=== PATIENT | female | born 2000 | race African-American/Black ===

== ENCOUNTER 2020-06-18 04:48 | Emergency (ER) | payer MEDICAID, SELFPAY ==
[2020-06-18 05:01] VITALS: BP 162/98; PULSE 76; RESP 16; TEMP 36.8; O2SAT 98; BMI 31.3
--- NOTE | 2020-06-18 05:18 | HMH.EDDENT ---
ED Disposition Clinical Impression: Pain, dental, Gingivitis Disposition: Home, Self-Care Condition on Discharge: Good Instructions: DI for Dental Pain Additional Instructions: use meds and see dentist Prescriptions: cephALEXin [Keflex 500mg Cap] 500 mg PO TID #30 cap Transmission Status: Pending to [facility] #[id number] Referrals: PCP,No [Primary Care Provider] - - Critical Care Critical Care Time: No Attestation: On 06/18/20, the high probability of a clinically significant, sudden or life threatening deterioration of the following system(s) required my full and direct attention, intervention and personal management. The time I documented below is in addition to time spent performing reported procedures but includes the following listed in this critical care notation. Medical Decision Making - Medical Records Medical records reviewed: Yes: I reviewed the patient's medical records. - Serge Inquiry Pt receiving controlled substance: No Vital Signs: 06/18/20 05:01 Temperature 98.2 F Temperature Source Oral Pulse Rate [Right Brachial] 76 Respiratory Rate 16 Blood Pressure [Right Arm] 162/98 H Blood Pressure Mean [Right Arm] 119 Blood Pressure Source [Right Arm] Automatic Cuff Blood Pressure Position [Right Arm] Sitting 02 Sat by Pulse Oximetry 98 Oxygen Delivery Method Room Air Orders (Tests/Meds): ED MEDICATIONS Generic Name Dose Route Start Last Admin Trade Name Freq PRN Reason Stop Dose Admin Benzocaine/Butamben/Tetracaine HCl 1 gm 06/18/20 05:16 06/18/20 05:18 Tetracaine/Benzocaine/Butamben 56 Gm [place] TP 07/18/20 05:15 1 gm NEEDED PRN Administration Mild Pain Discontinued Medications Generic Name Dose Route Start Last Admin Trade Name Freq PRN Reason Stop Dose Admin Lidocaine HCl 15 ml 06/18/20 05:08 06/18/20 05:18 Lidocaine 2% Viscous Angie 15ml Udc PO 06/18/20 05:09 15 ml ONCE ONE Administration Dental HPI - General Chief complaint: Dental/Oral Stated complaint: Pain in lft jaw;tooth Time Seen by Provider: 06/18/20 05:19 Mode of Arrival: Family Vehicle Source of Information: Patient, Medical Record Limitations: No Limitations Description of Symptoms (Recalled from ER Triage Doc. by RN): right side jaw pain, began 4 days ago; states she broke a tooth on her lower jaw and noted it started having swelling and pain. presents because she can't get good sleep > - History of Present Illness HPI Narrative: rt lower jaw pain - hx of dental issues MD Complaint: tooth pain Onset (ago): day(s) Duration: constant Severity: moderate Context: history of dental caries Treatment prior to arrival: none - Related Data Previous Rx's Medication Instructions Recorded cephALEXin [Keflex 500mg Cap] 500 mg PO TID #30 cap 06/18/20 Allergies Allergy/AdvReac Type Severity Reaction Status Date / Time acetaminophen [From Tylenol] Allergy Verified 06/18/20 05:17 latex Allergy Verified 06/18/20 05:07 [facility] History - Hepatitis A Screen Drug use history?: No High risk sexual behaviors?: No History of sexually transmitted infection?: No Currently employed?: No Childcare worker?: No Do you have indoor plumbing?: Yes Do you have electricity?: Yes Attestation statement:: This patient has been screened for Hepatitis A risk factors. I have reviewed the patient's past medical history: Yes ROS Obtained: Yes All systems reviewed & no additional complaints - Constitutional Constitutional: Denies fever(s) - Eyes Eyes: Denies change in vision - ENT Ears, Nose, Mouth, and Throat: Reports as per HPI, Reports dental pain Physical Exam - General General appearance: alert - Head Head exam: normocephalic - Eye Eye exam: Present: PERRL, EOMI - ENT ENT exam: Present: mucous membranes moist - Expanded ENT Exam Teeth exam: Present: dental caries, gingival swelling - Neck Neck exam: Present: trachea midline - Respi
[2020-06-18 05:26] VITALS: BP 147/86; PULSE 72; RESP 16; TEMP 36.7; O2SAT 98
== END 2020-06-18 05:28 | disposition home or self-care (01) ==
PROVIDERS: Emergency Provider Emergency Medicine
DX: K05.01 Acute gingivitis, non-plaque induced (principal); K02.9 Dental caries, unspecified; R03.0 Elevated blood-pressure reading, without diagnosis of hypertension; Z91.040 Latex allergy status
CPT/HCPCS: 99281

== ENCOUNTER 2020-06-23 19:37 | Emergency (ER) | payer MEDICAID, SELFPAY ==
[2020-06-23 19:31] VITALS: BP 152/83; PULSE 98; RESP 14; TEMP 37.1; O2SAT 99; BMI 31.3
--- NOTE | 2020-06-23 19:46 | CT_ITS ---
PROCEDURE: CT HEAD/BRAIN WO CON CLINICAL INDICATION: seizure 4 seizures today COMPARISON: No exams were available for comparison TECHNIQUE: Axial images obtained. All CT scans at the facility use one or more dose reduction, viz: automated exposure control, ma/kV adjustment per patient size (including targeted exams where dose is matched to indication, i.e. head), or iterative reconstruction technique. FINDINGS: No midline shift, mass effect, intracranial hemorrhage, hydrocephalus, or extra-axial fluid collection is evident. The calvarium has an unremarkable appearance. No mastoid effusion. Mild mucosal thickening present in the ethmoid sinuses. IMPRESSION: No acute intracranial finding Dictated by: Adonay Stinson MD 06/24/2020 05:31 Adonay Stinson MD in [facility] 06/24/2020 05:31
[2020-06-23 20:00] LABS: Microscopic, Urine URINE MICROSCOPIC (MICROSCOPIC)
[2020-06-23 20:05] LABS: Appearance,Urine CLEAR (Clear); Bilirubin,Urine Negative (Negative); Blood, Urine Negative (Negative); Color,Urine YELLOW (Yellow); Glucose,Urine (UA) Negative (Negative); Ketones,Urine Negative (Negative); Leukocyte Esterase,Urine Negative (Negative); Nitrate,Urine Negative (Negative); PH,Urine 7.5 (5.0-8.5); Protein,Urine Negative (Negative)
[2020-06-23 20:06] LABS: Urine Pregnancy, HCG Qual. Negative (Negative)
[2020-06-23 20:10] LABS: Bacteria,Urine 1+ /lpf; Mucus,Urine 1+ /lpf
[2020-06-23 20:20] LABS: Barbiturates Screen,Urine Negative ng/ml (<200)
[2020-06-23 20:22] LABS: Cannabinoid Screen,Urine Negative ng/ml (<50); Cocaine Screen,Urine Negative ng/ml (<300)
[2020-06-23 20:24] LABS: Opiate Screen,Urine Negative ng/ml (<300); Phencyclidine Screen,Urine Negative ng/ml (<25)
[2020-06-23 20:27] LABS: Benzodiazepines Screen,Urine Negative ng/ml (<200); Methadone Screen,Urine Negative ng/ml (<300)
[2020-06-23 20:28] LABS: Amphetamine/Metha Screen,Urine Negative ng/ml (<1000)
[2020-06-23 21:00] LABS: Basophils # 0.1 K/mm3 (0-0.2); Basophils % 0.8 % (0.1-2.0); Eosinophils # 0.2 K/mm3 (0.0-0.4); Eosinophils % 1.6 % (0.1-12.0); Hematocrit 41.7 % (37.0-47.0); Hemoglobin 14.1 g/dL (12.2-16.2); Lymphocytes # 2.3 K/mm3 (0.7-4.5); Lymphocytes % 24.7 % (10-50); Mean Corpuscular HGB Conc 33.8 g/dL (31.8-35.4); Mean Corpuscular Hemoglobin 29.1 pg (27.0-31.2); Mean Platelet Volume 7.6 fl (7.4-10.4); Monocytes # 0.4 K/mm3 (0.1-1.0); Monocytes % 4.2 % (1.7-9.3); Neutrophils # 6.4 K/mm3 (1.8-7.8); Neutrophils % 68.7 % (37.0-80.0); Platelet Count 291 K/mm3 (142-424); Red Blood Count 4.85 M/mm3 (4.20-5.40); Red Cell Distribution Width 13.9 % (11.5-17.5); White Blood Count 9.4 K/mm3 (4.8-10.8)
--- NOTE | 2020-06-23 21:02 | HMH.EDSEIZ ---
ED Disposition Clinical Impression: Epileptic seizure Qualifiers: Epilepsy type: unspecified Intractability: not intractable Status epilepticus: without status epilepticus Qualified Code(s): G40.909 - Epilepsy, unspecified, not intractable, without status epilepticus Disposition: Home, Self-Care Condition on Discharge: Good Instructions: DI for Seizure Disorder -- Adult Additional Instructions: see pcp for follow up Prescriptions: levETIRAcetam [Keppra 500mg tablet] 500 mg PO BID #30 tab Transmission Status: Received by [facility] #[id number] Referrals: PCP,No [Primary Care Provider] - - Critical Care Critical Care Time: No Attestation: On 06/23/20, the high probability of a clinically significant, sudden or life threatening deterioration of the following system(s) required my full and direct attention, intervention and personal management. The time I documented below is in addition to time spent performing reported procedures but includes the following listed in this critical care notation. Medical Decision Making - Medical Records Medical records reviewed: Yes: I reviewed the patient's medical records. - Serge Inquiry Pt receiving controlled substance: No Vital Signs: 06/23/20 19:31 Temperature 98.7 F Temperature Source Oral Pulse Rate [Right] 98 H Respiratory Rate 14 Blood Pressure [Right Arm] 152/83 H Blood Pressure Mean [Right Arm] 106 Blood Pressure Source [Right Arm] Automatic Cuff Blood Pressure Position [Right Arm] Sitting 02 Sat by Pulse Oximetry 99 Oxygen Delivery Method Room Air - Lab Data Lab results reviewed: Yes: I reviewed the patient's lab results. Lab Results 06/23/20 19:50: Urine Color Yellow, Urine Appearance Clear, Urine pH 7.5, Ur Specific [place] 1.020, Urine Protein Negative, Urine Glucose (UA) Negative, Urine Ketones Negative, Urine Blood Negative, Urine Nitrate Negative, Urine Bilirubin Negative, Urine Urobilinogen 1.0, Ur Leukocyte Esterase Negative, Urine WBC 3-5, Ur Squamous Epith Cells 5-10, Urine Bacteria 1+, Urine Mucus 1+ 06/23/20 19:50: Urine HCG, Qual Negative 06/23/20 19:50: Urine Opiates Screen Negative, Urine Methadone Screen Negative, Ur Barbituates Screen Negative, Ur Phencyclidine Scrn Negative, Ur Amphetamines Screen Negative, U Benzodiazepines Scrn Negative, Urine Cocaine Screen Negative, U Marijuana (THC) Screen Negative 06/23/20 20:49: WBC 9.4, RBC 4.85, Hgb 14.1, Hct 41.7, MCV 86.0, MCH 29.1, MCHC 33.8, RDW 13.9, Plt Count 291, MPV 7.6, Neut % (Auto) 68.7, Lymph % (Auto) 24.7, [place] % (Auto) 4.2, Eos % (Auto) 1.6, Baso % (Auto) 0.8, Neut # (Auto) 6.4, Lymph # (Auto) 2.3, [place] # (Auto) 0.4, Eos # (Auto) 0.2, Baso # (Auto) 0.1 06/23/20 20:49: Sodium 139, Potassium 3.3 L, Chloride 104, Carbon Dioxide 26, Anion Gap 12.3, BUN 5 L, Creatinine 0.50 L, Estimated Creat Clear 198, Estimated GFR 156, Est GFR ( Amer) 188, Glucose 114 H, Calcium 9.3, Total Bilirubin 0.5, AST 27, ALT 17, Alkaline Phosphatase 97, C-Reactive Protein 2.5, Total Protein 9.7 H, Albumin 4.5, Globulin 5.2 H, Albumin/Globulin Ratio 0.9 L Result diagrams: 06/23/20 20:49 06/23/20 20:49 Orders (Tests/Meds): ED MEDICATIONS Generic Name Dose Route Start Last Admin Trade Name Freq PRN Reason Stop Dose Admin Sodium Chloride 1,000 mls @ 999 mls/hr 06/23/20 20:00 Sod Chlor 0.9% 1000ml Bag IV 06/23/20 21:00 .[id number] JEWELL Levetiracetam 1,000 mg 06/24/20 09:00 Levetiracetam 500 Mg Tablet PO 07/24/20 08:59 TID JEWELL ORDERS Category Date Time Status CT head/brain wo con Stat Cat Scan 06/23/20 19:46 Taken Complete Blood Count Auto Diff Stat Lab 06/23/20 20:49 Results Erythrocyte Sedimentation Rate Stat Lab 06/23/20 20:49 Results Levetiracetam (Keppra) Stat Lab 06/23/20 20:49 Received - CT Data CT Scan: Head Time Received: 21:[address] Reviewed: Yes: I have viewed the radiologist's interpretation Preliminary Findings: Normal/NAD Seizures HPI - Gen
[2020-06-23 21:03] LABS: Chloride 104 mmol/L (98-107); Potassium 3.3 mmoL/L (3.5-5.1); Sodium 139 mmol/L (136-145)
[2020-06-23 21:06] LABS: Alanine Aminotransferase 17 U/L (12-78); Albumin Level 4.5 g/dl (3.5-5.0); Albumin/Globulin Ratio 0.9 (1.1-1.8); Alkaline Phosphatase 97 U/L (38-126); Anion Gap 12.3 mEq/L (5-15); Aspartate Amino Transferase 27 U/L (14-36); Bilirubin,Total 0.5 mg/dl (0.2-1.3); Blood Urea Nitrogen 5 mg/dl (7-17); Carbon Dioxide 26 mmol/L (22.0-30.0); Creatinine Clearance Estimated 198 mL/min (50-200); Estimated Glomerular Filt Rate 156 ml/min (>60); GFR (African American) 188 ML/MIN (>60); Globulin 5.2 g/dL (1.3-3.2); Total Protein,Serum 9.7 g/dl (6.3-8.2)
[2020-06-23 21:07] LABS: Calcium 9.3 mg/dl (8.4-10.2); Glucose 114 mg/dl (74-100)
--- NOTE | 2020-06-23 21:10 | PC.NURSE ---
Kepra dose per Sabrina in Pharmacy
[2020-06-23 21:12] LABS: C-Reactive Protein 2.5 mg/L (0-4)
[2020-06-23 21:36] LABS: Erythrocyte Sedimentation Rate 36 mm/hr (0-20)
[2020-06-23 21:47] VITALS: BP 124/85; PULSE 83; RESP 16; TEMP 36.6; O2SAT 100
[2020-06-28 11:17] LABS: Levetiracetam (Keppra) <1.0 ug/mL (10.0-40.0)
== END 2020-06-23 21:48 | disposition home or self-care (01) ==
PROVIDERS: Emergency Provider Emergency Medicine
DX: G40.909 Epilepsy, unspecified, not intractable, without status epilepticus (principal); Z91.040 Latex allergy status
CPT/HCPCS: 36415; 70450; 80053; 80177; 80305; 81001; 81025; 85025; 85651; 86140; 99283

== ENCOUNTER 2020-07-21 03:30 | Emergency (ER) | payer MEDICAID, SELFPAY ==
[2020-07-21 03:31] VITALS: BP 111/67; PULSE 94; RESP 15; TEMP 36.9; O2SAT 100; BMI 32.3
--- NOTE | 2020-07-21 05:08 | HMH.EDDENT ---
ED Disposition Clinical Impression: Pain, dental, Dental caries Disposition: Home, Self-Care Condition on Discharge: Good Instructions: DI for Dental Pain Additional Instructions: see pcp for follow up and also dentist Prescriptions: clindamycin HCL [Clindamycin HCl] 300 mg PO TID #21 cap Transmission Status: Pending to [facility] # Meloxicam [Mobic 15 mg tab] 15 mg PO DAILY #10 tab Transmission Status: Pending to [facility] #[id number] Referrals: PCP,No [Primary Care Provider] - - Critical Care Critical Care Time: No Attestation: On 07/21/20, the high probability of a clinically significant, sudden or life threatening deterioration of the following system(s) required my full and direct attention, intervention and personal management. The time I documented below is in addition to time spent performing reported procedures but includes the following listed in this critical care notation. Medical Decision Making - Medical Records Medical records reviewed: Yes: I reviewed the patient's medical records. - Serge Inquiry Pt receiving controlled substance: No Vital Signs: 07/21/20 03:31 Temperature 98.5 F Temperature Source Oral Pulse Rate [Right Radial] 94 H Respiratory Rate 15 Blood Pressure [Right Arm] 111/67 Blood Pressure Mean [Right Arm] 81 Blood Pressure Source [Right Arm] Automatic Cuff Blood Pressure Position [Right Arm] Sitting 02 Sat by Pulse Oximetry 100 Oxygen Delivery Method Room Air - Lab Data Lab results reviewed: Yes: I reviewed the patient's lab results. Orders (Tests/Meds): ED MEDICATIONS Generic Name Dose Route Start Last Admin Trade Name Freq PRN Reason Stop Dose Admin Benzocaine/Butamben/Tetracaine HCl 1 gm 07/21/20 04:14 07/21/20 04:21 Tetracaine/Benzocaine/Butamben 56 Gm [place] TP 08/20/20 04:13 1 gm NEEDED PRN Administration Dental pain Discontinued Medications Generic Name Dose Route Start Last Admin Trade Name Freq PRN Reason Stop Dose Admin Indomethacin 25 mg 07/21/20 04:55 07/21/20 04:59 Indomethacin 25 Mg Capsule PO 07/21/20 04:56 25 mg ONCE ONE Administration Lidocaine HCl 15 ml 07/21/20 04:14 07/21/20 04:20 Lidocaine 2% Viscous Angie 15ml Udc PO 07/21/20 04:15 15 ml ONCE ONE Administration Dental HPI - General Chief complaint: Dental/Oral Stated complaint: Toothache,mouth pain Time Seen by Provider: 07/21/20 04:35 Mode of Arrival: Ambulatory Source of Information: Patient, Medical Record Limitations: No Limitations Description of Symptoms (Recalled from ER Triage Doc. by RN): Pt c/o right side jaw pain and swelling starting 2 days ago. She states pain is similar to last time she was seen here in this ED 06/18. Pt has not followed up with dentist. - History of Present Illness HPI Narrative: pt with ongoing dental pain - pt has not seen dentist MD Complaint: tooth pain Onset (ago): day(s) Severity: mild Context: history of dental caries - Related Data Home Medications Medication Instructions Recorded Confirmed Tramadol HCl [Tramadol 50mg 50 mg PO Q6 PRN 06/23/20 06/23/20 Tab] cephALEXin [Keflex 500mg Cap] 500 mg PO TID 06/23/20 06/23/20 levETIRAcetam [Levetiracetam] 500 mg PO BID 06/23/20 06/23/20 Previous Rx's Medication Instructions Recorded levETIRAcetam [Keppra 500mg tablet] 500 mg PO BID #30 tab 06/23/20 Meloxicam [Mobic 15 mg tab] 15 mg PO DAILY #10 tab 07/21/20 clindamycin HCL [Clindamycin HCl] 300 mg PO TID #21 cap 07/21/20 Allergies Allergy/AdvReac Type Severity Reaction Status Date / Time acetaminophen [From Tylenol] Allergy Verified 06/18/20 05:17 latex Allergy Verified 06/18/20 05:07 [facility] History - Hepatitis A Screen Drug use history?: No High risk sexual behaviors?: No History of sexually transmitted infection?: No Currently employed?: No Childcare worker?: No Do you have indoor plumbing?: Yes Do you have electricity
[2020-07-21 05:23] VITALS: BP 126/68; PULSE 72; RESP 15; TEMP 36.7; O2SAT 100
== END 2020-07-21 05:25 | disposition home or self-care (01) ==
PROVIDERS: Emergency Provider Emergency Medicine
DX: K02.9 Dental caries, unspecified (principal); G40.909 Epilepsy, unspecified, not intractable, without status epilepticus; Z79.899 Other long term (current) drug therapy
CPT/HCPCS: 99281

== ENCOUNTER 2020-10-05 00:11 | Emergency (ER) | payer MEDICAID, SELFPAY ==
[2020-10-05 00:13] VITALS: BP 122/84; PULSE 96; RESP 14; TEMP 36.5; O2SAT 98; BMI 31.3
[2020-10-05 00:34] LABS: Appearance,Urine CLEAR (Clear); Bilirubin,Urine Negative (Negative); Blood, Urine TRACE-I (Negative); Color,Urine YELLOW (Yellow); Glucose,Urine (UA) Negative (Negative); Ketones,Urine Negative (Negative); Leukocyte Esterase,Urine Negative (Negative); Microscopic, Urine URINE MICROSCOPIC (MICROSCOPIC); Nitrate,Urine Negative (Negative); Protein,Urine Negative (Negative); Specific Gravity, Urine 1.025 (1.005-1.030); Urobilinogen,Urine 0.2 EU/dl (0.2)
[2020-10-05 00:37] LABS: Urine Pregnancy, HCG Qual. Negative (Negative)
[2020-10-05 00:41] LABS: Basophils # 0.1 K/mm3 (0-0.2); Basophils % 0.8 % (0.1-2.0); Eosinophils # 0.2 K/mm3 (0.0-0.4); Eosinophils % 2.1 % (0.1-12.0); Hematocrit 38.7 % (37.0-47.0); Hemoglobin 12.5 g/dL (12.2-16.2); Lymphocytes # 2.6 K/mm3 (0.7-4.5); Lymphocytes % 27.4 % (10-50); Mean Corpuscular HGB Conc 32.3 g/dL (31.8-35.4); Mean Corpuscular Hemoglobin 28.9 pg (27.0-31.2); Mean Corpuscular Volume 89.3 fl (81-99); Mean Platelet Volume 10.7 fl (7.4-10.4); Monocytes # 0.8 K/mm3 (0.1-1.0); Monocytes % 8.4 % (1.7-9.3); Neutrophils # 5.9 K/mm3 (1.8-7.8); Neutrophils % 61.3 % (37.0-80.0); Platelet Count 177 K/mm3 (142-424); Red Blood Count 4.34 M/mm3 (4.20-5.40); Red Cell Distribution Width 12.7 % (11.5-17.5); White Blood Count 9.6 K/mm3 (4.8-10.8)
[2020-10-05 00:45] LABS: Chloride 106 mmol/L (98-107)
[2020-10-05 00:46] LABS: Potassium 3.7 mmoL/L (3.5-5.1); Sodium 137 mmol/L (136-145)
[2020-10-05 00:48] LABS: Alanine Aminotransferase 15 U/L (12-78); Aspartate Amino Transferase 25 U/L (14-36); Blood Urea Nitrogen 3 mg/dl (7-17); Creatinine Clearance Estimated 196 mL/min (50-200); Estimated Glomerular Filt Rate 154 ml/min (>60); GFR (African American) 187 ML/MIN (>60)
[2020-10-05 00:49] LABS: Albumin Level 4.1 g/dl (3.5-5.0); Albumin/Globulin Ratio 0.9 (1.1-1.8); Alkaline Phosphatase 88 U/L (38-126); Anion Gap 11.7 mEq/L (5-15); Bilirubin,Total 0.4 mg/dl (0.2-1.3); Calcium 9.1 mg/dl (8.4-10.2); Carbon Dioxide 23 mmol/L (22.0-30.0); Globulin 4.5 g/dL (1.3-3.2); Glucose 114 mg/dl (74-100); Total Protein,Serum 8.6 g/dl (6.3-8.2)
[2020-10-05 00:49] LABS: Amphetamine/Metha Screen,Urine Negative ng/ml (<1000)
[2020-10-05 00:50] LABS: Barbiturates Screen,Urine Negative ng/ml (<200)
[2020-10-05 00:51] LABS: Benzodiazepines Screen,Urine Negative ng/ml (<200); Cannabinoid Screen,Urine Negative ng/ml (<50)
[2020-10-05 00:52] LABS: Cocaine Screen,Urine Negative ng/ml (<300)
[2020-10-05 00:53] LABS: Methadone Screen,Urine Negative ng/ml (<300)
[2020-10-05 00:54] LABS: Opiate Screen,Urine Negative ng/ml (<300)
[2020-10-05 00:55] LABS: Phencyclidine Screen,Urine Negative ng/ml (<25)
[2020-10-05 00:56] LABS: C-Reactive Protein 2.9 mg/L (0-4)
[2020-10-05 01:14] LABS: Amorphous Sediment,Urine 1+ /lpf; Bacteria,Urine 1+ /lpf; Mucus,Urine 1+ /lpf
--- NOTE | 2020-10-05 01:30 | PC.NURSE ---
multiple attempts made to get iv access. was unable to obtain access
[2020-10-05 01:39] LABS: Erythrocyte Sedimentation Rate 22 mm/hr (0-20)
[2020-10-05 01:50] LABS: Procalcitonin 0.041 ng/mL (0.0-2.0)
--- NOTE | 2020-10-05 01:57 | HMH.EDHA ---
ED Disposition Clinical Impression: DUB (dysfunctional uterine bleeding) Migraine Qualifiers: Migraine type: unspecified Status migrainosus presence: without status migrainosus Intractability: not intractable Qualified Code(s): G43.909 - Migraine, unspecified, not intractable, without status migrainosus Disposition: Home, Self-Care Condition on Discharge: Good Instructions: DI for Migraine Additional Instructions: call pcp for follow up Referrals: Shaka Lowry APRN [Primary Care Provider] - - Critical Care Critical Care Time: No Attestation: On 10/05/20, the high probability of a clinically significant, sudden or life threatening deterioration of the following system(s) required my full and direct attention, intervention and personal management. The time I documented below is in addition to time spent performing reported procedures but includes the following listed in this critical care notation. Medical Decision Making - Medical Records Medical records reviewed: Yes: I reviewed the patient's medical records. - Serge Inquiry Pt receiving controlled substance: No Vital Signs: 10/05/20 00:13 Temperature 97.7 F Temperature Source Oral Pulse Rate [Right] 96 H Respiratory Rate 14 Blood Pressure [Right Arm] 122/84 Blood Pressure Mean [Right Arm] 96 02 Sat by Pulse Oximetry 98 - Lab Data Lab results reviewed: Yes: I reviewed the patient's lab results. Lab Results 10/05/20 00:15: Urine Color Yellow, Urine Appearance Clear, Urine pH 6.0, Ur Specific [place] 1.025, Urine Protein Negative, Urine Glucose (UA) Negative, Urine Ketones Negative, Urine Blood Trace-i, Urine Nitrate Negative, Urine Bilirubin Negative, Urine Urobilinogen 0.2, Ur Leukocyte Esterase Negative, Urine WBC 3-5, Ur Squamous Epith Cells 10-20, Amorphous Sediment 1+, Urine Bacteria 1+, Urine Mucus 1+ 10/05/20 00:15: Urine HCG, Qual Negative 10/05/20 00:15: Urine Opiates Screen Negative, Urine Methadone Screen Negative, Ur Barbituates Screen Negative, Ur Phencyclidine Scrn Negative, Ur Amphetamines Screen Negative, U Benzodiazepines Scrn Negative, Urine Cocaine Screen Negative, U Marijuana (THC) Screen Negative 10/05/20 00:34: WBC 9.6, RBC 4.34, Hgb 12.5, Hct 38.7, MCV 89.3, MCH 28.9, MCHC 32.3, RDW 12.7, Plt Count 177, MPV 10.7 H, Neut % (Auto) 61.3, Lymph % (Auto) 27.4, [place] % (Auto) 8.4, Eos % (Auto) 2.1, Baso % (Auto) 0.8, Neut # (Auto) 5.9, Lymph # (Auto) 2.6, [place] # (Auto) 0.8, Eos # (Auto) 0.2, Baso # (Auto) 0.1, ESR 22 H 10/05/20 00:34: Sodium 137, Potassium 3.7, Chloride 106, Carbon Dioxide 23, Anion Gap 11.7, BUN 3 L, Creatinine 0.50 L, Estimated Creat Clear 196, Estimated GFR 154, Est GFR ( Amer) 187, Glucose 114 H, Calcium 9.1, Total Bilirubin 0.4, AST 25, ALT 15, Alkaline Phosphatase 88, C-Reactive Protein 2.9, Total Protein 8.6 H, Albumin 4.1, Globulin 4.5 H, Albumin/Globulin Ratio 0.9 L, Procalcitonin 0.041 Result diagrams: 10/05/20 00:34 10/05/20 00:34 Orders (Tests/Meds): ED MEDICATIONS Discontinued Medications Generic Name Dose Route Start Last Admin Trade Name Freq PRN Reason Stop Dose Admin Dexamethasone Sodium Phosphate 8 mg 10/05/20 01:18 10/05/20 01:23 Dexamethasone 4mg/Ml 1ml Vial IM 10/05/20 01:19 8 mg ONCE ONE Administration Diphenhydramine HCl 50 mg 10/05/20 00:33 10/05/20 01:35 Diphenhydramine 50mg/Ml Vial IV 10/05/20 00:34 Not Given ONCE ONE Sodium Chloride 1,000 mls @ 999 mls/hr 10/05/20 00:30 10/05/20 01:34 Sod Chlor 0.9% 1000ml Bag IV 10/05/20 01:30 Not Given .Q1H1M JEWELL Ketorolac Tromethamine 30 mg 10/05/20 00:30 10/05/20 01:34 Ketorolac 30mg/Ml Vial IM 10/05/20 00:31 Not Given ONCE ONE Ketorolac Tromethamine 60 mg 10/05/20 01:18 10/05/20 01:23 Ketorolac 60mg/2ml Vial IM 10/05/20 01:19 60 mg ONCE ONE Administration Methylprednisolone Sodium Succinate 125 mg 10/05/20 00:33 10/05/20 01:35 Methylprednisolone Sod Succ 125mg Vial IV 03
[2020-10-05 02:14] VITALS: BP 127/82; PULSE 79; RESP 14; TEMP 36.5; O2SAT 97
== END 2020-10-05 02:16 | disposition home or self-care (01) ==
PROVIDERS: Emergency Provider Emergency Medicine; PCP Nurse Practitioner Family
DX: N93.8 Other specified abnormal uterine and vaginal bleeding (principal); G43.909 Migraine, unspecified, not intractable, without status migrainosus
CPT/HCPCS: 80053; 80305; 81001; 81025; 84145; 85025; 85651; 86140; 96372; 99282

== ENCOUNTER → 2020-10-31 11:18 | Outpatient (CLI) | payer MEDICAID, SELFPAY ==
[2020-11-08 04:21] LABS: Levetiracetam (Keppra) <1.0 ug/mL (10.0-40.0)
== END ==
PROVIDERS: Visit Provider Specialist
DX: G40.909 Epilepsy, unspecified, not intractable, without status epilepticus (principal)
CPT/HCPCS: 36415; 80177

== ENCOUNTER → 2020-11-03 15:01 | Outpatient (CLI) | payer MEDICAID, SELFPAY | PROVIDERS: PCP Nurse Practitioner Family; Visit Provider Specialist | DX: G40.909 Epilepsy, unspecified, not intractable, without status epilepticus (principal); R51.9 Headache, unspecified; Z68.39 Body mass index [BMI] 39.0-39.9, adult | CPT/HCPCS: 94762 ==

== ENCOUNTER → 2020-11-21 12:32 | Outpatient (CLI) | payer MEDICAID, SELFPAY ==
[2020-11-28 12:34] LABS: Levetiracetam (Keppra) <1.0 ug/mL (10.0-40.0)
== END ==
PROVIDERS: Visit Provider Specialist
DX: R56.9 Unspecified convulsions (principal)
CPT/HCPCS: 36415; 80177

== ENCOUNTER → 2020-11-22 14:39 | Outpatient (CLI) | payer MEDICAID, SELFPAY ==
[2020-11-22 15:07] LABS: Basophils % 0.5 % (0.1-2.0); Eosinophils # 0.1 K/mm3 (0.0-0.4); Eosinophils % 1.8 % (0.1-12.0); Hematocrit 38.8 % (37.0-47.0); Hemoglobin 12.8 g/dL (12.2-16.2); Lymphocytes # 1.8 K/mm3 (0.7-4.5); Lymphocytes % 25.4 % (10-50); Mean Corpuscular HGB Conc 32.9 g/dL (31.8-35.4); Mean Corpuscular Hemoglobin 28.4 pg (27.0-31.2); Mean Corpuscular Volume 86.3 fl (81-99); Mean Platelet Volume 7.7 fl (7.4-10.4); Monocytes # 0.3 K/mm3 (0.1-1.0); Monocytes % 4.9 % (1.7-9.3); Neutrophils # 4.7 K/mm3 (1.8-7.8); Neutrophils % 67.4 % (37.0-80.0); Platelet Count 253 K/mm3 (142-424); Red Blood Count 4.49 M/mm3 (4.20-5.40); Red Cell Distribution Width 12.4 % (11.5-17.5)
[2020-11-23 10:39] LABS: Blood Urea Nitrogen 2 mg/dl (7-17); Estimated Glomerular Filt Rate 154 ml/min (>60); GFR (African American) 187 ML/MIN (>60)
== END ==
PROVIDERS: Specialist; Visit Provider Nurse Practitioner Obstetrics & Gynecology
DX: N93.9 Abnormal uterine and vaginal bleeding, unspecified (principal); N93.8 Other specified abnormal uterine and vaginal bleeding; R56.9 Unspecified convulsions
CPT/HCPCS: 36415; 82565; 84520; 85025

== ENCOUNTER → 2020-11-23 10:08 | Outpatient (CLI) | payer MEDICAID, SELFPAY ==
--- NOTE | 2020-11-23 10:08 | MR_ITS ---
PROCEDURE: MR HEAD/BRAIN WO/W CON CLINICAL INDICATION: seizures COMPARISON: CT CT HEAD/BRAIN WO CON from 06/23/2020 TECHNIQUE: Routine multiplanar multi echo sequences are performed without gadolinium enhancement. FINDINGS: No evidence of restricted diffusion is noted. The flow voids in the major intracranial vessels are preserved. The frank-white matter differentiation is within normal limits without evidence of infarcts. No midline shift or mass effect. No intra or extra-axial hemorrhage, space or space occupying lesion. No focal fluid collections. The sella and the suprasellar region are unremarkable. The visualized medial temporal lobes are unremarkable although the study is not tailored to evaluate for subtle changes. No abnormal enhancement is noted. Small mucous retention cyst in the left maxillary sinus. Otherwise the visualized paranasal sinuses and the mastoid air cells are clear. IMPRESSION: No acute intracranial abnormality. Dictated by: Sydnee Mcclendon 11/23/2020 13:14 Sydnee Mcclendon in [facility] 11/23/2020 13:14
== END ==
PROVIDERS: PCP Nurse Practitioner Family; Visit Provider Specialist
DX: G40.009 Localization-related (focal) (partial) idiopathic epilepsy and epileptic syndromes with seizures of localized onset, not intractable, without status epilepticus (principal)
CPT/HCPCS: 70553; A9576

== ENCOUNTER → 2020-11-29 14:53 | Outpatient (CLI) | payer MEDICAID, SELFPAY ==
--- NOTE | 2020-11-29 14:53 | US_ITS ---
PROCEDURE: US TRANSVAGINAL CLINICAL INDICATION: abnormal vaginal bleeding COMPARISON: No exams were available for comparison FINDINGS: UTERUS: 6cm x 4cmx 4cm with a combined endometrial thickness of 11.3mm LEFT OVARY: [id number] with a volume of 9ml. RIGHT OVARY: [id number] with a volume of 11.2ml. Endometrium is mildly thickened at 12 mm. No obvious uterine mass. Small bilateral ovarian follicles are noted. No cul-de-sac fluid. IMPRESSION: Mild thickening of the endometrium Dictated by: Adonay Stinson MD 11/29/2020 17:36 Adonay Stinson MD in [facility] 11/29/2020 17:36
== END ==
PROVIDERS: PCP Nurse Practitioner Family; Visit Provider Nurse Practitioner Obstetrics & Gynecology
DX: N93.9 Abnormal uterine and vaginal bleeding, unspecified (principal)
CPT/HCPCS: 76830

== ENCOUNTER → 2020-12-02 09:57 | Outpatient (CLI) | payer MEDICAID, SELFPAY ==
--- NOTE | 2020-12-02 10:00 | XR_ITS ---
PROCEDURE: XR HAND LT MIN 3V CLINICAL INDICATION: LT thumb pain COMPARISON: No exams were available for comparison FINDINGS: No fracture or dislocation. No lytic or blastic change. There is normal mineralization. The joint spaces are well-preserved. No significant degenerative/arthritic changes. No erosive changes evident. Other findings:None. IMPRESSION: No acute findings. Dictated by: Adonay Stinson MD 12/02/2020 12:46 Adonay Stinson MD in [facility] 12/02/2020 12:46
== END ==
PROVIDERS: PCP Nurse Practitioner Family; Visit Provider Orthopaedic Surgery
DX: M79.645 Pain in left finger(s) (principal)
CPT/HCPCS: 73130

== ENCOUNTER 2021-01-02 11:00 | Outpatient (RCR) | payer MEDICAID, SELFPAY ==
--- NOTE | 2020-12-07 08:38 | HMH.OTOPEV ---
OT Inpatient Evaluation Rehab OT Outpatient Eval Start: 12/07/20 08:23 Freq: Status: Active Protocol: Document 12/07/20 08:23 GRACE (Rec: 12/07/20 08:37 RMOLIVIA [id number]) Electronically Signed By Therese Valencia OT 12/07/20 08:23 Outpatient Therapy Subjective History Subjective History Pt is a 20 year old female who reports to therapy for initial evaluation to L thumb. Pt reports ~2 years ago her thumb began hurting and continued off and on. However , within the past 3 months her pain has been more constant with clicking at the IP joint. 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 Pt did go to ortho and received an injection ~ 1 week ago. As of now, her pain has improved, but is not completely gone. Pt also c/o right thumb hurting worse due to over compensation. Pt demonstrates with slight decreased AROM at left thumb and decreased pool hand strength. Pt will continue to be seen in order to address all deficits. STG AROM L thumb MP Flex: 45 degrees IP Flex: 70 degrees Abduction: 65 degrees LTG MP Flex: 50 degrees IP Flex: 80 degrees Abduction: 70 degrees Chief Complaint Pain,Stiff,Clicks,Weakness Symptom Type Ache,Throb,Sharp Symptoms Relieved By Rest/Positioning Symptoms Aggravated By Physical Activity,Lifting Prior Functional Limitations None Current Functional Limitations Lifting,Housework,Recreation Activity Symptom Description Constant but Variable Level of pain today (0-10) 2 Pain scale - at its best (0-10) 2 Pain scale - at its worst (0-10) 8 Wrist/Hand Eval Thumb Range of Motion Left Thumb Metacarpophalangeal Flexion Active 35 degrees Range of Motion (degrees) Thumb Metacarpophalangeal Extension 0 degrees Active Range of Motion (degrees) Thumb Radial Abduction (Carpometacarpal 60 degrees Extens) Active Range (degrees)
== END 2021-01-02 12:05 | disposition home or self-care (01) ==
LOC: OT 11:00
PROVIDERS: PCP Nurse Practitioner Family; Visit Provider Orthopaedic Surgery
DX: M65.4 Radial styloid tenosynovitis [de Quervain] (principal)
CPT/HCPCS: 97014; 97035; 97140; 97166; G0283

== ENCOUNTER → 2021-01-25 10:48 | Outpatient (CLI) | payer MEDICAID, SELFPAY ==
--- NOTE | 2021-01-25 10:51 | XR_ITS ---
PROCEDURE: XR HAND RT MIN 3V CLINICAL INDICATION: right hand pain COMPARISON: CR XR HAND LT MIN 3V from 12/02/2020 FINDINGS: No fracture or dislocation. No lytic or blastic change. There is normal mineralization. The joint spaces are well-preserved. No significant degenerative/arthritic changes. No erosive changes evident. Other findings:None. IMPRESSION: Negative right hand Dictated by: Adonay Stinson MD 01/25/2021 11:41 Adonay Stinson MD in [facility] 01/25/2021 11:41
== END ==
PROVIDERS: PCP Nurse Practitioner Family; Visit Provider Orthopaedic Surgery
DX: M79.641 Pain in right hand (principal)
CPT/HCPCS: 73130

== ENCOUNTER 2021-01-25 11:41 | Outpatient (RCR) | payer MEDICAID, SELFPAY | END 2021-01-25 12:08 | disposition home or self-care (01) | LOC: OT 11:41 | PROVIDERS: Visit Provider Orthopaedic Surgery | DX: M65.4 Radial styloid tenosynovitis [de Quervain] (principal) | CPT/HCPCS: 97763 ==

== ENCOUNTER 2021-08-13 12:44 | Emergency (ER) | payer MEDICAID, SELFPAY ==
[2021-08-13] VITALS (10 sets, daily range): BP systolic 86–119; BP diastolic 46–76; PULSE 55–125; RESP 15–20; TEMP 37.2–38.3; O2SAT 80–99; BMI 31.3
--- NOTE | 2021-08-13 13:24 | HMH.EDGENADL ---
ED Disposition Clinical Impression: Viral syndrome, Encounter for laboratory testing for COVID-19 virus Disposition: Home, Self-Care Condition on Discharge: Good Additional Instructions: Please continue to monitor your condition closely at home. If your condition worsens or any other concerns arise, please return to the emergency department. Otherwise, please follow-up with your primary care physician. Referrals: Shaka Lowry APRN [Primary Care Provider] - - Critical Care Critical Care Time: No Attestation: On 08/13/21, the high probability of a clinically significant, sudden or life threatening deterioration of the following system(s) required my full and direct attention, intervention and personal management. The time I documented below is in addition to time spent performing reported procedures but includes the following listed in this critical care notation. Medical Decision Making - Medical Records Medical records reviewed: Yes: I reviewed the patient's medical records. - Serge Inquiry Pt receiving controlled substance: No Vital Signs: 08/13/21 12:45 08/13/21 13:30 08/13/21 14:05 Temperature 101 F H Temperature Source Oral Pulse Rate 103 H 55 L Pulse Rate [Radial] 125 H Respiratory Rate 20 16 Blood Pressure 119/69 118/66 Blood Pressure [Right Arm] 117/75 Blood Pressure Mean 94 Blood Pressure Mean [Right Arm] 89 Blood Pressure Position [Right Arm] Sitting 02 Sat by Pulse Oximetry 98 99 92 L Oxygen Delivery Method Room Air 08/13/21 14:31 08/13/21 14:59 08/13/21 15:26 Temperature Temperature Source Pulse Rate 100 H 96 H 98 H Pulse Rate [Radial] Respiratory Rate 17 Blood Pressure 89/46 L 86/46 L 90/55 L Blood Pressure [Right Arm] Blood Pressure Mean 65 Blood Pressure Mean [Right Arm] Blood Pressure Position [Right Arm] 02 Sat by Pulse Oximetry 98 97 98 Oxygen Delivery Method 08/13/21 15:31 08/13/21 17:13 Temperature Temperature Source Pulse Rate 117 H 83 Pulse Rate [Radial] Respiratory Rate 15 Blood Pressure 104/58 L 108/70 L Blood Pressure [Right Arm] Blood Pressure Mean 83 Blood Pressure Mean [Right Arm] Blood Pressure Position [Right Arm] 02 Sat by Pulse Oximetry 80 L 99 Oxygen Delivery Method - Lab Data Lab results reviewed: Yes: I reviewed the patient's lab results. Lab Results 08/13/21 14:00: WBC 9.8, RBC 4.48, Hgb 13.0, Hct 39.0, MCV 87.1, MCH 28.9, MCHC 33.2, RDW 12.6, Plt Count 278, MPV 7.8, Neut % (Auto) 84.4 H, Lymph % (Auto) 8.9 L, [place] % (Auto) 5.4, Eos % (Auto) 1.0, Baso % (Auto) 0.3, Neut # (Auto) 8.3 H, Lymph # (Auto) 0.9, [place] # (Auto) 0.5, Eos # (Auto) 0.1, Baso # (Auto) 0.0 08/13/21 14:00: D-Dimer 0.37 08/13/21 14:00: Sodium 136, Potassium 3.8, Chloride 103, Carbon Dioxide 24, Anion Gap 12.8, BUN 8, Creatinine 0.50 L, Estimated Creat Clear 196, Estimated GFR 154, Est GFR ( Amer) 187, Glucose 100, Calcium 9.2, Total Bilirubin 0.7, AST 33, ALT 20, Alkaline Phosphatase 83, Troponin I < 0.01, Total Protein 9.3 H, Albumin 4.4, Globulin 4.9 H, Albumin/Globulin Ratio 0.9 L 08/13/21 14:00: Serum HCG, Qual Negative Result diagrams: 08/13/21 14:00 08/13/21 14:00 Orders (Tests/Meds): ED MEDICATIONS Generic Name Dose Route Start Last Admin Trade Name Freq PRN Reason Stop Dose Admin Lactated Ringer's 500 mls @ 999 mls/hr 08/13/21 15:15 08/13/21 15:39 Lactated Ringer's 1000 Ml Bag IV 08/13/21 15:45 999 mls/hr .[id number] JEWELL Administration Discontinued Medications Generic Name Dose Route Start Last Admin Trade Name Freq PRN Reason Stop Dose Admin Ketorolac Tromethamine 15 mg 08/13/21 13:17 08/13/21 14:04 Ketorolac 30mg/Ml Vial IV 08/13/21 13:18 15 mg ONCE ONE Administration Prochlorperazine Edisylate 10 mg 08/13/21 13:17 08/13/21 14:04 Prochlorperazine 10mg/2ml Vial IV 08/13/21 13:18 10 mg ONCE ONE Administration ORDERS Category Date Time Status Covid
--- NOTE | 2021-08-13 13:26 | PC.NURSE ---
COVID swab collected and sent to the lab
--- NOTE | 2021-08-13 13:33 | XR_ITS ---
PROCEDURE INFORMATION: Exam: XR Chest Exam date and time: 08/13/2021 1:33 PM Age: 20 years old Clinical indication: Dyspnea TECHNIQUE: Imaging protocol: XR of the chest. Views: 1 view. COMPARISON: No relevant prior studies available. FINDINGS: Lungs: Interstitial prominence without acute airspace disease. Pleural spaces: No pleural effusion. Heart/Mediastinum: Normal configuration of the heart. Bones/joints: Unremarkable. IMPRESSION: Interstitial prominence without acute airspace disease.
--- NOTE | 2021-08-13 13:39 | PC.NURSE ---
radiology at bedside
--- NOTE | 2021-08-13 13:43 | PC.NURSE ---
warm blanket was given to the patient at this time.
[2021-08-13 14:20] LABS: Basophils % 0.3 % (0.1-2.0); Eosinophils # 0.1 K/mm3 (0.0-0.4); Lymphocytes # 0.9 K/mm3 (0.7-4.5); Lymphocytes % 8.9 % (10-50); Mean Corpuscular HGB Conc 33.2 g/dL (31.8-35.4); Mean Corpuscular Hemoglobin 28.9 pg (27.0-31.2); Mean Corpuscular Volume 87.1 fl (81-99); Mean Platelet Volume 7.8 fl (7.4-10.4); Monocytes # 0.5 K/mm3 (0.1-1.0); Monocytes % 5.4 % (1.7-9.3); Neutrophils # 8.3 K/mm3 (1.8-7.8); Neutrophils % 84.4 % (37.0-80.0); Platelet Count 278 K/mm3 (142-424); Red Blood Count 4.48 M/mm3 (4.20-5.40); Red Cell Distribution Width 12.6 % (11.5-17.5); White Blood Count 9.8 K/mm3 (4.8-10.8)
[2021-08-13 14:23] LABS: Alanine Aminotransferase 20 U/L (12-78); Albumin Level 4.4 g/dl (3.5-5.0); Albumin/Globulin Ratio 0.9 (1.1-1.8); Alkaline Phosphatase 83 U/L (38-126); Anion Gap 12.8 mEq/L (5-15); Aspartate Amino Transferase 33 U/L (14-36); Bilirubin,Total 0.7 mg/dl (0.2-1.3); Blood Urea Nitrogen 8 mg/dl (7-17); Calcium 9.2 mg/dl (8.4-10.2); Carbon Dioxide 24 mmol/L (22.0-30.0); Chloride 103 mmol/L (98-107); Creatinine Clearance Estimated 196 mL/min (50-200); Estimated Glomerular Filt Rate 154 ml/min (>60); GFR (African American) 187 ML/MIN (>60); Globulin 4.9 g/dL (1.3-3.2); Glucose 100 mg/dl (74-100); Potassium 3.8 mmoL/L (3.5-5.1); Sodium 136 mmol/L (136-145); Total Protein,Serum 9.3 g/dl (6.3-8.2)
[2021-08-13 14:29] LABS: D-Dimer 0.37 ug/mL (0.0-0.5)
[2021-08-13 14:40] LABS: Troponin I < 0.01 ng/ml (0.00-0.034)
[2021-08-13 14:45] LABS: HCG Qualitative, Serum Negative (Negative)
== END 2021-08-13 18:24 | disposition home or self-care (01) ==
PROVIDERS: Emergency Provider Emergency Medicine; PCP Nurse Practitioner Family
DX: U07.1 COVID-19 (principal); B34.9 Viral infection, unspecified; K21.9 Gastro-esophageal reflux disease without esophagitis; J45.909 Unspecified asthma, uncomplicated
CPT/HCPCS: 71045; 80053; 84484; 84703; 85025; 85378; 96365; 96375; 99282; C9803; U0003; U0005

== ENCOUNTER → 2021-08-31 11:36 | Outpatient (CLI) | payer MEDICAID, SELFPAY ==
[2021-09-01 10:39] LABS: Rapid Plasma Reagin Ab Titer Non Reactive (NonRea<1:1)
[2021-09-01 11:29] LABS: HIV Screen 4th Generation wRfx Non Reactive (Non Reactive)
[2021-09-01 12:14] LABS: Hep A Ab, IgM Negative (Negative); Hepatitis B Core Antibody IgM Negative (Negative); Hepatitis B Surface Antigen Negative (Negative); Hepatitis C Antibody <0.1 s/co ratio (0.0-0.9)
[2021-09-02 06:14] LABS: HSV 2 IgG, Type Spec <0.91 index (0.00-0.90)
[2021-09-02 12:10] LABS: Neisseria gonorrhoeae, NAA Negative (Negative)
== END ==
PROVIDERS: Visit Provider Nurse Practitioner Obstetrics & Gynecology
DX: Z72.51 High risk heterosexual behavior (principal)
CPT/HCPCS: 36415; 80074; 86592; 86695; 86703; 86790; 87491; 87591; G0432